=== PATIENT | male | born 1980 | race Caucasian/White ===

== ENCOUNTER 2025-10-13 13:01 | Outpatient (AMB) | payer BC, SELFPAY ==
--- NOTE | 2025-10-13 13:23 | A.OFFVIS_ITS ---
Vital Signs 10/13/25 13:25 Height 6 ft Weight 170 lb BMI 23.1 Intake Visit Reasons: rt foot injury x5 yrs ago in pain Intake Note: Lucas is a 44 year old male who presents today as a new patient for an evaluation of his right foot injury over 5 years ago. he had a compound fracture on both sides of his ankle and he notices discomfort and pain regularly. no recent imaging has been done. patient reports pain located on the plantar aspect of the ball of his foot where a possible callous has formed. He believes there might be a glass shard left in his foot. Allergies No Known Allergies Allergy (Verified 10/13/25 13:24) HPI HPI rt foot injury x5 yrs ago in pain: Details: 44 y/o male seen today for initial evaluation of lesion to his right foot. He has had the lesion for over 2 months. He thinks he may have stepped on glass although he is unsure. He went to see a deck cadet who shaved the lesion and did not find a foreign body at the time. He also notes a history of right ankle fracture that underwent multiple surgeries including a wound dehiscence. He does note limited mobility to the ankle and was recommended an ankle fusion by another provider however he is not interested in any treatment at this time. Review of Systems Const All systems reviewed & are unremarkable except as noted in HPI and below Physical Exam Vital Signs: BMI result Body Mass Index 23.1 Extrem Other: *Bilateral Lower Extremity Focused Foot Exam Vascular: DP/PT 2/4, CFT<3s to digits, TG warm to cool, no pedal edema, pedal hair present Derm: hyperkeratotic lesion with pinpoint central scar/opening to the plantar aspect of the 3rd/4th metatarsal region. no obvious foreign body visualized. no erythema or drainage or signs of infection. healed incisions to lateral and medial right ankle Neuro: Protective sensation grossly intact to bilateral lower extremities. Msk: moderate pain on palpation to right plantar lesion right ankle range of motion 20 degrees, dorsiflexion to 0 degrees with osseous block. Footwear Assessment: Shoes inspected; appropriate fit, no excessive wear, or foreign objects noted. Office Procedures AMB Debridement/Avulsion Podia Details: Procedure: Callus debridement Location: right plantar foot lesion Anesthesia: N/A Description: The affected area was cleansed with an antiseptic solution. Using a sterile #15 blade, the hyperkeratotic tissue was radially debrided from the foot. All callused tissue was removed down to normal skin without causing bleeding or discomfort. The area was inspected for underlying ulceration or infection. Patient tolerated the procedure well. No complications noted. Tolerance: Patient tolerated procedure well, no immediate complications. 19487-Qasehhymtsc of Callus (1) Procedure code (CPT) selection complete Assessment & Plan Assessment & Plan (1) Foreign body in right foot: Code(s): S90.851A - Superficial foreign body, right foot, initial encounter Category: Medical Qualifiers: Encounter type: initial encounter Qualified Code(s): S90.851A - Superficial foreign body, right foot, initial encounter Plan: * Differential diagnosis includes retained foreign body versus plantar lesion 2/2 elongated metatarsal in the setting of rigid ankle rocker. * Referred for right foot x-ray * Rx Right Foot MRI with and without contrast to evaluate for foreign body and plan for possible surgical excision. (2) Ankle arthritis: Code(s): M19.079 - Primary osteoarthritis, unspecified ankle and foot Category: Medical Qualifiers: Laterality: right Qualified Code(s): M19.071 - Primary osteoarthritis, right ankle and foot Plan: * Discussed possible custom AFO in the future if he requires it * No surgical plan/TTC at this time due to fair ankle range of motion. (3) Callus of foot: Code(s): L84 - Corns and callosities Category: Medical Plan: * Debrided right foot lesion using a #15 blade. Applied off-loading U-pad. * Rx Urea cream Orders: Orders XR foot RT min 3V Today S90.851A - Superficial foreign body, right foot, initial encounter MR ankle RT wo/w con Today S90.851A - Superficial foreign body, right foot, initial encounter Medications: New urea 40% Apply to right foot callus 1 appl topical BID 28 grams 3RF Right foot callus Coding Level of Care Code New Pt Level 4 (24801) Diagnoses Foreign body in right foot, initial encounter S90.851A Encounter type: initial encounter Arthritis of right ankle M19.071 Laterality: right Callus of foot L84 CPT Codes Skin Debridement - CPT: 70914-Ehexqitoijx of Callus (1) ([id number]) Time Spent (min) 40
[2025-10-13 13:25] VITALS: BMI 23.1
== END 2025-10-13 13:48 | disposition home or self-care (01) ==
PROVIDERS: PCP Internal Medicine Sports Medicine; Visit Provider Student in an Organized Health Care Education/Training Program
DX: S90.851A Superficial foreign body, right foot, initial encounter (principal); M19.071 Primary osteoarthritis, right ankle and foot; L84 Corns and callosities
CPT/HCPCS: 11055; 99204

== ENCOUNTER → 2025-10-13 13:01 | Outpatient (BNVA) | payer BC, SELFPAY | PROVIDERS: PCP Internal Medicine Sports Medicine; Visit Provider Student in an Organized Health Care Education/Training Program | DX: S90.851A Superficial foreign body, right foot, initial encounter (principal); M19.071 Primary osteoarthritis, right ankle and foot; L84 Corns and callosities | CPT/HCPCS: 11055 ==

== ENCOUNTER 2025-11-09 14:36 | Outpatient (REF) | payer BC, SELFPAY ==
--- NOTE | ~2025-11-09 | XR_ITS ---
EXAMINATION: XR FOOT, RIGHT CLINICAL INFORMATION: S90.851A - Superficial foreign body, right foot, initial encounter COMPARISON: None available. TECHNIQUE: AP, lateral, and oblique views of the right foot. FINDINGS: There is osteopenia. No fractures are identified. There is no joint diastases or malalignment. There is hardware related to ORIF of a distal tibial fracture There is severe narrowing, marginal osteophytes, and sclerosis of the talotibial and talofibular joints. 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 Osteopenia. No superficial radiopaque foreign is identified. Electronically signed by: Allan Johnston MD 11/09/2025 04:05 PM JOSE ANTONIO ACOSTA
--- OUTSIDE RECORDS SUMMARY | 2025-11-09 21:08 | XMS_ITS | Encounter Summary ---
Author Organization [facility] Address [facility] [address] [place] [address] Phone Care Team Providers Care Practice Coordinator Name Role Phone Reji Ying DO Primary Care Provider [phone] Fadi Metzger MD Primary Care Provider Gale Grace MD Unavailable Encounter Details Date Type Department Care Team (Late st Contact Info) Description 02/04/2019 Ancillary Orders Virtual Department [address] [place] [address] Reji Ying DO [address] [address] SOB (shortness of breath) Social History Tobacco Use Types Packs/Day Years Used Date Smoking Tobacco: Never Smokeless Tobacco: Never Alcohol Use Standard Drinks/Week Comments Yes 0 (1 standard drink = 0.6 oz pur e alcohol) Sex and Gender Information Value Date Recorded Sex Assigned at Male 12/23/2018 2:28 PM EST Legal Sex Male 9:23 PM EDT Gender Identity Male 12/23/2018 2:28 PM EST Sexual Orientation Straight 12/23/2018 2: 28 PM EST documented as of this encounter Plan of Treatment Not on file documented as of this encounter Results * XR CHEST PA AND LATERAL 2 VIEWS (02/04/2019 11:28 AM EDT) Anatomical Region Laterality Modality Chest Radiographic Stephanie ging 02/04/2019 12:5 6 PM EDT Impressions 02/04/2019 12:57 PM EDT No acute cardiopulmonary process. POS - [id number] Narrative 02/04/2019 12:57 PM EDT EXAM: XR CHEST PA AND LATERAL 2 VIEWS COMPARISON: July 31, 2007 FINDINGS: No confluent lung consolidations or lung masses. No pneumothorax or pleural effusion. No pulmonary vascular congestion. Cardiomediastinal silhouette is within normal limits. Osseous structures are grossly intact. Procedure Note Obed Guzmán MD - 02/04/2019 EXAM: XR CHEST PA AND LATERAL 2 VIEWS COMPARISON: July 31, 2007 FINDINGS: No confluent lung consolidations or lung masses. No pneumothorax orpleural effusion. No pulmonary vascular congestion. Cardiomediastinalsilhouette is within normal limits. Osseous structures are grosslyintact. IMPRESSION: No acute cardiopulmonary process. POS - [id number] Reji Ying DO IMViet XR CHEST Final Result documented in this encounter Visit Diagnoses Diagnosis SOB (shortness of breath) Shortness of breath SOB (shortness of breath) Shortness of breath documented in this encounter Additional Health Concerns Infection Onset Date Last Indicated Resolved Time CoV-Risk 07/21/2020 07/21/2020 08/04/2020 1:23 AM EDT documented as of this encounter Care Teams Practice Coordinator Relationship Specialty Start Date End Date Reji Ying DO PCP - General 09/10/17 04/06/19 Fadi Metzger MD PCP - General Internal Medicine 04/07/19 Gale Grace MD [address] [place] [address] [address] [place] [address] [email or web address] Orthopedic Surgeon Orthopedic Surgery 09/11/19 documented as of this encounter Additional Source Comments The information contained in this document represents components of the legal health record. It is not the complete legal health record.[facility]
--- OUTSIDE RECORDS SUMMARY | 2025-11-09 21:08 | XMS_ITS | Clinical Summary ---
Author Organization [facility] Prior to 04/25/[address] [place] [address] Care Team Providers Care Construction Equipment Overhauler Name Role Phone Fadi Metzger MD Primary Care Provider [phone] Medications Medication Sig Dispensed Refills Start Date End Date Status cholecalciferol (VITAMIN D3) 200 UNITS split tablet Take by mouth. 0 Ac tive SENNA PO TK 1 T PO D 0 06/18/2020 Active albuterol (PROVENTIL HFA;VENTOLIN HFA) 108 (90 Base) MCG/ACT inhaler Inhale 2 puffs into the lungs every 4 (four) hours. 0 02/06/2019 Active ALPRAZolam (XANAX) 0.5 MG tablet Take 0.5 mg by mouth. 0 06/30/2020 Active amphetamine-dextroamp hetamine (ADDERALL) 20 MG tablet Take 20 mg by mouth. 0 07/22/2020 Active fluticasone-salmetero l (ADVAIR DISKUS) 250-50 MCG/DOSE DISKUS Inhale 1 puff into the lungs. 0 07/13/2020 Active WIXELA INHUB 250-50 MCG/DOSE DISKUS INHALE 1 PUFF INTO THE LUNGS Q 12 HOURS 0 07/13/2020 Active ibuprofen (ADVIL,MOTRIN) 200 MG tablet Take 200 mg by mouth every 6 (six) hours as needed. 0 Active montelukast (SINGULAIR) 10 MG tablet Take 10 mg by mouth. 0 07/09/2020 Active oxyCODONE (ROXICODONE) 5 MG immediate release tablet Take 5 mg by mouth. 0 06/30/2020 Activ e predniSONE (DELTASONE) tablet 20 mg TK 3 TS PO WITH FOOD D X5 DAYS 0 07/12/2020 Active senna-docusate (DOK PLUS) 8.6-50 MG TAKE 1 TABLET BY MOUTH EVERY DAY 0 02/01/2020 Active SODIUM CHLORIDE, EXTERNAL, (GNP SALINE WOUND WASH) 0.9 % SOLN Use as directed 0 04/25/2019 Active zolpidem (AMBIEN) 10 MG tablet Take 10 mg by mouth. 0 05/07/2020 Active Social History Tobacco Use Types Packs/Day Years Used Date Smoking Tobacco: Never Smokeless Tobacco: Never Alcohol Use Standard Drinks/Week Comments Yes 5 (1 standard drink = 0.6 oz pur e alcohol) Sex and Gender Information Value Date Recorded Sex Assigned at Not on file Gender Identity Not on file Sexual Orientation Not on file Last Filed Vital Signs Vital Sign Reading Time Taken Comments Blood Pressure - - Pulse - - Temperature 36.7 C (98.1 F) 07/22/2020 2:54 PM EDT Respiratory Rate - - Oxygen Saturation - - Inhaled Oxygen Concentration - - Weight 77.1 kg (170 lb) 07/22/2020 2:54 PM EDT Height 182.9 cm (6') 07/22/2020 2:54 PM EDT Body Mass Index 23.06 07/22/2020 2:54 PM EDT Plan of Treatment Health Maintenance Due Date Last Done Comments Hepatitis B Vaccines (1 of 3 - 3-dose series) 1979 Hepatitis C Screening 1979 COVID-19 Vaccine (#1) 06/02/1980 Depression Screening 1991 Preventative Health Evaluation 1997 Colon Cancer Screening (Colonoscopy) 2024 Influenza Vaccine (#1) 2025 08/19/2018 DTap / Tdap / Td (3 - Td or Tdap) 12/23/2028 12/23/2018, 09/11/2016 Pneumococcal Vaccine Aged Out No long er eligible based on patient's age to complete this topic RSV Ped < 20 months Aged Out No longe r eligible based on patient's age to complete this topic Care Teams Construction Equipment Overhauler Relationship Specialty Start Date End Date Fadi Metzger MD [address] [place] [address] PCP - General Internal Medicine 07/22/20
--- OUTSIDE RECORDS SUMMARY | 2025-11-09 21:08 | XMS_ITS | Patient Health Record ---
Author Organization [facility] Address [address] [place] [id number] Care Team Providers Care Wire Technician Name Role Phone PURNIMA SRIVASTAVA MD Primary Care Provider Unava ilable Reason For Referral No Information Medications Medication SIG (Take, Route, Frequency, Duration) Notes Start Date End Date Status Adderall 50mg tablet 1 tablet Orally Twice a day Active Albuterol Sulfate 108 (90 Base) MCG/ACT Aerosol Powder Breath Activated 2 puffs Inhalation every 6 hrs Active Propranolol HCl 80 MG Tablet 1 capsule Orally Once a day Not-Taking/PRN Multiple Vitamin - Tablet 1 tablet Orally Once a day Active Cialis 5 MG Tablet 1 tablet Orally Once a day Not-Taking/PRN Methocarbamol 500 MG Tablet 1 tablet Orally TID; Duration: 30 day(s) 08/23/2020 Active Meloxicam 7.5 MG Tablet 1 tablet Orally Once a day; Duration: 30 day(s) 08/23/2020 Active oxyCODONE HCl 5 MG Tablet 1 tablet Orally every 8 hours as needed Active Gabapentin 300 MG Capsule 1 capsule Orally Once a day Active Zolpidem Tartrate 10 MG Tablet 1 tablet at bedtime as needed Orally Once a day Active Cholecalciferol 1 tablet Orally Once a day Not-Taking/PRN Amphetamine-Dextroamphe tamine Active Fluticasone-Salmeterol 250-50 MCG/DOSE Aerosol Powder Breath Activated 1 puff Inhalation every 12 hours Not-Taking/PRN Montelukast Sodium 10 MG Tablet 1 tablet Orally bedtime Not-Taking/PRN ALPRAZolam 0.5 MG Tablet 1 tablet Orally one a day Active Lidocaine 5 % Patch 1 patch remove after 12 hours Externally Once a day; Duration: 30 days 08/23/2020 Active Social History Tobacco Use: Social History Observation Description Date Details (start date - stop date) Never Smoker NA - NA Social History Tobacco Use: Social Info Question Answer Notes Tobacco Use/Smoking Are you a nonsmoker Additional Findings: Tobacco Non-User Current no n-smoker Additional Details Category Social Info Options Details Tobacco Use: Medical Marijuana medical Problems Problem Type SNOMED Code ICD Code Onset Dates Problem Status W/U Status Risk Notes Problem Complex regional pain syndrome type I of right lower limb (disorder) ([id number]) Complex regional pain syndrome I of right lower limb (G90.521) Active confirmed Plan Of Treatment No Information Insurance Providers Payer Name Payer Address Payer Phone Subscriber Number Group Number Insured Name Patient Relationship to Insured Coverage Start Date Coverage End Date [employer] [address] [place], [place] [id number] WILLIAM CHAVEZ Self - patient is the insured Medical (General) History Medical History History ICD Code moderate persistent asthma without compl ication anxiety chronic pain of right ankle insomnia, unspecified type low back pain siluntion deficit disorder-franklin antunez elevated BP 03/2013 FBS-107 borderline lipids medical marijuana car from chad Pacheco MD March2013 Allay marjuana infused lotion of pain add letter from Tamir Hazel at [facility] - ADD diagnosis right ankle injury-[facility] orth 2012-insists he needs percocet on occassions and has been counseled extensively conncerning therisk. signed nercotie contract 04/13/2015 signed narcotric contract 12/23/2015 Surgical History Surgery Date(Month/Year) ankle surgery leg surgery Hospitalization History Reason Date(Month/Year) skiing accident, broken tibi a and fibula, broke ankle into 50 pieces, damage to pcl 2017
--- OUTSIDE RECORDS SUMMARY | 2025-11-09 21:08 | XMS_ITS | Encounter Summary ---
Author Organization [facility] Address [address] [place] [address] [place] [id number] Phone Care Team Providers Care Manager Property Name Role Phone Fadi Metzger MD Primary Care Provider Gale Grace MD Unavailable [phone] Encounter Details Date Type Department Care Team (Late st Contact Info) Description 04/28/2020 Procedure Pass [facility] [address] [place] [address] Social History Tobacco Use Types Packs/Day Years Used Date Smoking Tobacco: Never Smokeless Tobacco: Never Alcohol Use Standard Drinks/Week Comments Yes 6 (1 standard drink = 0.6 oz pur e alcohol) Sex and Gender Information Value Date Recorded Sex Assigned at Male 12/23/2018 2:28 PM EST Legal Sex Male 9:23 PM EDT Gender Identity Male 12/23/2018 2:28 PM EST Sexual Orientation Straight 12/23/2018 2: 28 PM EST documented as of this encounter Plan of Treatment Not on file documented as of this encounter Visit Diagnoses Not on filedocumented in this encounter Additional Health Concerns Infection Onset Date Last Indicated Resolved Time CoV-Risk 07/21/2020 07/21/2020 08/04/2020 1:23 AM EDT documented as of this encounter Care Teams Manager Property Relationship Specialty Start Date End Date Fadi Metzger MD PCP - General Internal Medicine 04/07/19 Gale Grace MD [address] [place] [address] [address] [place] [address] [email or web address] Orthopedic Surgeon Orthopedic Surgery 09/11/19 documented as of this encounter Additional Source Comments The information contained in this document represents components of the legal health record. It is not the complete legal health record.[facility]
--- OUTSIDE RECORDS SUMMARY | 2025-11-09 21:08 | XMS_ITS | Encounter Summary ---
Author Organization [facility] Address [address] [place] [address] Phone Care Team Providers Care Developmental Specialist Name Role Phone Fadi Metzger MD Primary Care Provider Gale Grace MD Unavailable [phone] Encounter Details Date Type Department Care Team (Late st Contact Info) Description 08/13/2020 Transcribe Orders Virtual Department [address] [place] [address] Caryl Trujillo MD [address] [place] [address] Encounter for laboratory testing for COVID-19 virus (Primary Dx) Social History Tobacco Use Types Packs/Day Years [...] documented as of this encounter Visit Diagnoses Diagnosis Encounter for laboratory testing for COVID-19 virus- Primary documented in this encounter Care Teams Developmental Specialist Relationship Specialty Start Date End Date Fadi Metzger MD PCP - General Internal Medicine 04/07/19 Gale Grace MD [address] [place] [address] [address] [place] [id number] [email or web address] Orthopedic Surgeon Orthopedic Surgery 09/11/19 documented as of this encounter Additional Source Comments The information contained in this document represents components of the legal health record. It is not the complete legal health record.[facility]
--- OUTSIDE RECORDS SUMMARY | 2025-11-09 21:08 | XMS_ITS | Encounter Summary ---
Author Organization [facility] Address [address] [place] [address] Phone Care Team Providers Care Contact Lens Curve Grinder Name Role Phone Reji Ying DO Primary Care Provider [phone] Fadi Metzger MD Primary Care Provider Gale Grace MD Unavailable [phone] Encounter Details Date Type Department Care Team (Late st Contact Info) Description 12/24/2018 Procedure Pass [facility] [address] [place] [phone] Social History Tobacco Use Types Packs/Day Years [...] documented as of this encounter Care Teams Contact Lens Curve Grinder Relationship Specialty Start Date End Date Reji Ying DO PCP - General 09/10/17 04/06/19 Fadi Metzger MD PCP - General Internal Medicine 04/07/19 Gale Grace MD [address] [place] [address] [address] [place] [address] [email or web address] Orthopedic Surgeon Orthopedic Surgery 09/11/19 documented as of this encounter Additional Source Comments The information contained in this document represents components of the legal health record. It is not the complete legal health record.[facility]
--- OUTSIDE RECORDS SUMMARY | 2025-11-09 21:08 | XMS_ITS | Encounter Summary ---
Author Organization [facility] Address [address] [place] [address] Phone Care Team Providers Care Whale Trainer Name Role Phone Reji Ying DO Primary Care Provider [phone] Fadi Metzger MD Primary Care Provider Gale Grace MD Unavailable [phone] Encounter Details Date Type Department Care Team (Late st Contact Info) Description 01/07/2019 Procedure Pass [facility] [address] [place] [phone] Social History Tobacco Use Types Packs/Day Years [...] documented as of this encounter Care Teams Whale Trainer Relationship Specialty Start Date End Date Reji Ying DO PCP - General 09/10/17 04/06/19 Fadi Metzger MD PCP - General Internal Medicine 04/07/19 Gale Grace MD [address] [place] [address] [address] [place] [address] [email or web address] Orthopedic Surgeon Orthopedic Surgery 09/11/19 documented as of this encounter Additional Source Comments The information contained in this document represents components of the legal health record. It is not the complete legal health record.[facility]
--- OUTSIDE RECORDS SUMMARY | 2025-11-09 21:08 | XMS_ITS | Clinical Summary ---
Author Organization [facility] Address [facility] [employer] [address] [address] Phone Care Team Providers Care Claims Administrator Name Role Phone Fadi Metzger MD Primary Care Provider Gale Grace MD Unavailable [phone] Allergies No known active allergies Medications ALPRAZolam (XANAX) 0.5 MG tablet Take 0.5 mg by mouth nightly as needed for sleep. Per [employer] 30 tabs = 30 day supply; last filled on 12/17/18 Active dextroamphetami ne-amphetamine (ADDERALL) 20 mg Tab tablet Take 20 mg by mouth 2 (two) times a day. Second dose before 5 pm to prevent insomnia; per [employer] 60 tabs = 30 day supply, last filled on 12/22/18 Active zolpidem (AMBIEN) 10 mg tablet Take 5-10 mg by mouth nightly as needed (Verified with pt Pharmacy - [facility]). Active albuterol 90 mcg/actuation inhaler Inhale 2 puffs into the lungs every 4 (four) hours. 1 Inhaler 9 Active sodium chloride (SALINE WOUND WASH) 0.9 % SprA Use as directed 210 mL 9 Active Additional Information Patient not taking.Reported on 10/29/2019 ibuprofen (ADVIL,MOTRIN) 200 MG tablet Take 200 mg by mouth every 6 (six) hours as needed for pain (specific location in comments). Active DOK PLUS 8.6-50 mg TAKE 1 TABLET BY MOUTH EVERY DAY 60 tablet 0 Active Additional Information Patient not taking.Reported on 04/28/2020 SENNA 8.6 mg tablet TAKE 1 TABLET BY MOUTH DAILY 30 tablet 3 0 Active Active Problems Problem Noted Date Diagnosed Date Surgical site infection 05/05/2019 Closed displaced pilon fract ure of right tibia with routine healing 01/08/2019 Rupture of tibialis posterio r tendon, right, initial encounter 01/07/2019 Ankle fracture, bimalleolar, closed, left, seque la 01/06/2019 Closed displaced pilon fract ure of tibia with routine healing 12/30/2018 Assessment & Plan (10/30/2019 5:23 AM EST): Reports stiffness and pain of joints in the morning after waking up which resolves as the day progresses which is currently better than it was earlier. Inquires if his stiffness and pain does not resolve, then it would be a sign of arthritis or healing. Inquires if he can ski and continue PT. He is not on antibiotics for two months. X-rays and CT scan of right ankle obtained today. Reviewed and discussed. Continue WBAT and AAT. Can take Advil or Aleve as needed. He may resume skiing if he is comfortable and uses rocker bottom shoes, as it will reduce strain on ankle joint. Suggested elliptical, bicycle and swimming and avoid running. Explained that if his pain and stiffness do not resolve it would be more likely a sign of arthritis. Discussed treatment with cortisone injection and bracing for arthritis. Continue PT as long as he is benefited from it, or he can continue with normal exercises. Follow up in March 15, 2020, with repeat right ankle x-ray. Assessment & Plan (01/23/2019 5:40 AM EST): He is two weeks s/p ORIF right pilon, removal external fixator performed on January 07, 2019. H/o Ex-fix right ankle and limited articular ORIF right tibial plafond performed on December 24, 2018. Reports severe right foot pain at some point of the day. He is taking pain medications, trying to wean it. He has few blisters over the right leg. Feels his right knee and foot are quite aligned. Informs he has rescheduled the MRI right knee. His mother is performing his nursing care. 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 He is out of work currently. Blisters, swelling are common with these type of fractures. It is called as fracture blisters. X-rays of the right ankle and tibia fibula obtained today. Reviewed and visualized. Reviewed CT right ankle performed on December 24, 2018. Removed the sutures today. Will let the middle sutures stay on. Send me a picture and I will instruct when to remove those sutures. Provided brace for the right foot today. Advised to perform the MRI right knee scheduled, to rule out extent of degrees of external rotation of the right foot. The degrees of external rotation maybe asymmetric slightly, however, not necessary. Function davidson he will be fine. I would think some bracing to keep the right foot aligned would be beneficial. We do not want him to develop stiffness. Prescribed gabapentin (NEURONTIN) 100 MG capsule. Take 1 capsule (100 mg total) by mouth every 8 (eight) hours Advised to remain out of work currently, as he will not be able to drive for a certain period. Try to relax the right leg as much as possible. I may manually be able to straighten the foot; however, I would not opt that. Allowed showering with soap and water. Dry meticulously. The knee ligaments are affected leading to deformity, we may consider referral to a sports surgeon. If not, I will allow it to heal, and observe if he has any functional problems and accept a slightly outwardly rotated knee. The only way to rotate the knee back is by surgery. Discussed bone healing post fractures. Discussed need for revision surgeries. Discussed Dial test for knee. Ambulatory referral to [facility] [place] [place] Venereal Disease Investigator Casting and Splinting provided. Follow up in four weeks with repeat x-rays of the right tibia fibula and ankle. Pilon fracture of right tibi a, open type I or II, initial encounter 12/23/2018 Immunizations Immunization Administration Dates Next Due Influenza Quadrivalent Prese rvative Free IM 01/08/2019(Deferred: Contraindication) Tdap 12/23/2018 Social History Tobacco Use Types Packs/Day Years Used Date Smoking Tobacco: Never Smokeless Tobacco: Never Tobacco Cessation:Counseling Given: No Alcohol Use Standard Drinks/Week Comments Yes 6 (1 standard drink = 0.6 oz pur e alcohol) Education Answer Date Recorded Are you interested in more education? Not on rolando e 03/23/2023 Are you concerned about learning? Not on file 03/23/2023 No 03/23/2023 No 03/23/2023 Digital Access Answer Date Recorded No 04/20/2023 No 04/20/2023 No 04/20/2023 Reliable internet access at home? Not on file 04/20/2023 Device with a working camera? Not on file Sex and Gender Information Value Date Recorded Sex Assigned at Male 12/23/2018 2:28 PM EST Legal Sex Male 9:23 PM EDT Gender Identity Male 12/23/2018 2:28 PM EST Sexual Orientation Straight 12/23/2018 2: 28 PM EST Last Filed Vital Signs Vital Sign Reading Time Taken Comments Blood Pressure 134/94 04/28/2020 11:00 AM EDT Pulse 74 04/28/2020 11:00 AM EDT Temperature 36.5 C (97.7 F) 04/28/2020 11:00 AM EDT Respiratory Rate 16 04/28/2020 11:00 AM EDT Oxygen Saturation 100% 04/28/2020 11:00 AM EDT Inhaled Oxygen Concentration - - Weight 77.1 kg (170 lb) 04/22/2020 1:59 PM EDT Height 182.9 cm (6') 04/22/2020 1:59 PM EDT Body Mass Index 23.06 04/22/2020 1:59 PM EDT Plan of Treatment Health Maintenance Due Date Last Done Comments LIPID PANEL 1979 DEPRESSION SCREENING 1991 HEPATITIS C SCREENING 1997 HIV ONE-TIME SCREENING (18-65 YEARS) 1997 COLOGUARD 2024 COLONOSCOPY 2024 COLORECTAL CANCER SCREENING 2024 FIT TEST 2024 FOBT 2024 SIGMOIDOSCOPY 2024 VIRTUAL COLONOSCOPY 2024 INFLUENZA VACCINE (#1) 2025 , 08/12/2019, 09/02/2018, Additional history exists COVID-19 VACCINE ( season) 2025 03/08/2021 Adult Td,Tdap Booster 07/28/2030 07/28/2020 , 12/23/2018, 07/05/2018, Additional history exists SMOKING STATUS SCREENING (Once After 26 Yrs) Completed 04/22/2020 HEPATITIS A VACCINES Aged Out No long er eligible based on patient's age to complete this topic HIB VACCINES Aged Out No longer eligi ble based on patient's age to complete this topic MENINGOCOCCAL VACCINES (ACWY) Aged Out No longer eligible based on patient's age to complete this topic MENINGOCOCCAL VACCINES (B) Aged Out N o longer eligible based on patient's age to complete this topic PNEUMOCOCCAL VACCINES (0-49 years) Aged Out No longer eligible based on patient's age to complete this topic Medical Devices Implanted Type Area Client Service Supervisor Device Identifier Shelf Expiration Date Model / Serial / Lot Screw Bone 48x3.5mm Cortex Ss Cannulated Partial Thread Hexagonal Socket Flat Head - [id number] Implanted:Qty: 2 on 12/24/2018 by Gale Grace MD at [facility] Right: Ankle SYNTHES [id number] / / Screw Bone 40x3.0mm Cannulated Ss Compression Short Thread Headless T8 [employer] Recess - [id number] Implanted:Qty: 2 on 12/24/2018 by Gale Grace MD at [facility] Explanted:Qty: 1 on 01/07/2019 at [facility] Right: Ankle SYNTHES [id number] / / Screw Bone 3.5x30mm Cortex Self Tapping Fully Threaded Hex Head Ss - [id number] Implanted:Qty: 2 on 01/07/2019 by Gale Grace MD at [facility] Right: Ankle SYNTHES 204.830 / / Screw Bone 56x3.5mm Lcp Ss Locking Self Tapping Full Thread [employer] Recess - [id number] Implanted:Qty: 1 on 01/07/2019 by Gale Grace MD at [facility] Right: Ankle SYNTHES [id number] / / Screw Bone 60x3.5mm Compression Ss Locking Self Tapping Full Thread T15 [employer] Recess - [id number] Implanted:Qty: 2 on 01/07/2019 by Gale Grace MD at [facility] Right: Ankle SYNTHES 212.124 / / Screw Bone 3.5x26mm Cortex Self Tapping Fully Threaded Hex Head Ss - [id number] Implanted:Qty: 1 on 01/07/2019 by Gale Grace MD at [facility] Right: Ankle SYNTHES 204.826 / / Screw Bone 3.5x28mm Cortex Self Tapping Fully Threaded Hex Head Ss - [id number] Implanted:Qty: 2 on 01/07/2019 by Gale Grace MD at [facility] Right: Ankle SYNTHES 204.828 / / Right Wrist Tibia Plate [id number] 8 Hole Bone Lcp Ss [place] Medial Distal Right - [id number] Implanted:Qty: 1 on 01/07/2019 by Gale Grace MD at [facility] Right: Ankle SYNTHES [id number] / / Insurance T PPO T PPO AETNA PPO AETNA PPO AETNA PPO AETNA PPO AETNA PPO AETNA PPO AETNA PPO Advance Directives For more information, please contact: [phone] (9AM - 5PM [facility], Sunday-Sunday) Documents on File Type Date Recorded Patient Porter Bag[employer] Expl anation Healthcare Proxy 12/27/2018 3:40 PM * Full Code (Presumed) (Latest Code Status on File) Date Activated Date Inactivated Comments 01/07/2019 7:29 AM 01/08/2019 4:49 PM * Full Code (Presumed) Date Activated Date Inactivated Comments 01/06/2019 4:09 PM 01/07/2019 7:29 AM * Full Code (Presumed) Date Activated Date Inactivated Comments 12/24/2018 11:46 AM 12/26/2018 5:13 PM * Full Code (Presumed) Date Activated Date Inactivated Comments 12/23/2018 9:46 PM 12/24/2018 11:46 AM Care Teams Claims Administrator Relationship Specialty Start Date End Date Fadi Metzger MD PCP - General Internal Medicine 04/07/19 Gale Grace MD [address] [place] [address] [address] [place] [address] [email or web address] Orthopedic Surgeon Orthopedic Surgery 09/11/19 Additional Source Comments The information contained in this document represents components of the legal health record. It is not the complete legal health record.[facility]
--- OUTSIDE RECORDS SUMMARY | 2025-11-09 21:08 | XMS_ITS | Encounter Summary ---
Author Organization [facility] Address [facility] [address] [address] Phone Care Team Providers Care Multicultural Manager Name Role Phone StepanReji Primary Care Provider [phone] Fadi Metzger MD Primary Care Provider Gale Grace MD Unavailable [phone] Encounter Details Date Type Department Care Team (Late st Contact Info) Description 01/17/2019 Procedure Pass [facility], [address] [address] Social History Tobacco Use Types Packs/Day Years [...] PM EST documented as of this encounter Last Filed Vital Signs Vital Sign Reading Time Taken Comments Blood Pressure - - Pulse - - Temperature - - Respiratory Rate - - Oxygen Saturation - - Inhaled Oxygen Concentration - - Weight 88.5 kg (195 lb) 01/20/2019 1:47 PM EST Height 182.9 cm (6') 01/20/2019 1:47 PM EST Body Mass Index 26.45 01/20/2019 1:47 PM EST documented in this encounter Plan of Treatment Not on file documented as of this encounter Visit Diagnoses Not on filedocumented in this encounter Additional Health Concerns Infection Onset Date Last Indicated Resolved Time CoV-Risk 07/21/2020 07/21/2020 08/04/2020 1:23 AM EDT documented as of this encounter Care Teams Multicultural Manager Relationship Specialty Start Date End Date StepanRejiDO PCP - General 09/10/17 04/06/19 Fadi Metzger MD PCP - General Internal Medicine 04/07/19 Gale Grace MD [address] [place] [address] [address] [place] [address] [email or web address] Orthopedic Surgeon Orthopedic Surgery 09/11/19 documented as of this encounter Additional Source Comments The information contained in this document represents components of the legal health record. It is not the complete legal health record.[facility]
== END 2025-11-09 14:37 | disposition home or self-care (01) ==
LOC: HO.XRAY 14:36
PROVIDERS: Visit Provider Student in an Organized Health Care Education/Training Program
DX: S90.851A Superficial foreign body, right foot, initial encounter (principal)
CPT/HCPCS: 73630

== ENCOUNTER → 2025-11-09 14:44 | Outpatient (BNV) | payer BC, SELFPAY | PROVIDERS: Visit Provider Radiology Diagnostic Radiology | DX: S90.851A Superficial foreign body, right foot, initial encounter (principal); M19.171 Post-traumatic osteoarthritis, right ankle and foot; M85.871 Other specified disorders of bone density and structure, right ankle and foot | CPT/HCPCS: 73630 ==

== ENCOUNTER 2025-11-10 12:36 | Outpatient (AMB) | payer BC, SELFPAY ==
--- NOTE | 2025-11-10 13:08 | A.OFFVIS_ITS ---
Vital Signs 11/10/25 13:09 Height 6 ft Weight 170 lb BMI 23.1 Intake Visit Reasons: rt foot injury x5 yrs ago in pain Intake Note: Lucas is a 44 year old male who presents today for a follow up on his ankle arthiritis. At his last visit X-ray and MRI where ordered. Patient reports everything is going well however he is still experiencing a discomfort on the plantar aspect of his right foot. Allergies No Known Allergies Allergy (Verified 11/10/25 13:10) HPI HPI rt foot injury x5 yrs ago in pain: Details: 44 y/o male seen today for follow up evaluation of lesion of his right foot. He notes the pain has improved his right foot, although he still experiences some sharp pain. He has not been unable to receive his MRI. He has not started his urea cream. History: He has had the lesion for over 2 months. He thinks he may have stepped on glass although he is unsure. He went to see a javascript web developer who shaved the lesion and did not find a foreign body at the time. He also notes a history of right ankle fracture that underwent multiple surgeries including a wound dehiscence. He does note limited mobility to the ankle and was recommended an ankle fusion by another provider however he is not interested in any treatment at this time. Review of Systems Const All systems reviewed & are unremarkable except as noted in HPI and below Physical Exam Vital Signs: BMI result Body Mass Index 23.1 Extrem Other: *Bilateral Lower Extremity Focused Foot Exam Vascular: DP/PT 2/4, CFT<3s to digits, TG warm to cool, no pedal edema, pedal hair present Derm: Mild hyperkeratotic lesion with pinpoint central scar/opening to the plantar aspect of the 3rd/4th metatarsal region. no obvious foreign body visualized. no erythema or drainage or signs of infection. healed incisions to lateral and medial right ankle Neuro: Protective sensation grossly intact to bilateral lower extremities. Msk: no pain on palpation to right plantar lesion right ankle range of motion 20 degrees, dorsiflexion to 0 degrees with osseous block. Footwear Assessment: Shoes inspected; appropriate fit, no excessive wear, or foreign objects noted. Office Procedures AMB Debridement /Avulsion Details: Procedure: Callus debridement Location: right plantar foot lesion Anesthesia: N/A Description: The affected area was cleansed with an antiseptic solution. Using a sterile #15 blade, the hyperkeratotic tissue was radially debrided from the foot. All callused tissue was removed down to normal skin without causing bleeding or discomfort. The area was inspected for underlying ulceration or infection. Patient tolerated the procedure well. No complications noted. Tolerance: Patient tolerated procedure well, no immediate complications. [id number] of Callus (1) Procedure code (CPT) selection complete Results Reviewed Results Reviewed: X-ray Read: 11/09/2025 X-ray right foot 3 views (AP, MO, Lateral) reviewed which shows mildly elongated 2nd/3rd metatarsals, shorter 4th metatarsal and 5th metatarsal. No fractures, dislocations, or gross abnormalities. Bone density is within normal limits. Normal anatomy. No evidence of swelling, foreign body, or calcifications. I personally reviewed the imaging and my findings are listed above. Assessment & Plan Assessment & Plan (1) Foreign body in right foot: Code(s): S90.851A - Superficial foreign body, right foot, initial encounter Category: Medical Qualifiers: Encounter type: initial encounter Qualified Code(s): S90.851A - Superficial foreign body, right foot, initial encounter Plan: * Differential diagnosis includes retained foreign body versus plantar lesion 2/2 elongated metatarsal in the setting of rigid ankle rocker. * Evaluated right foot x-ray which was negative for foreign bodies, no fractures. Mild abnormal metatarsal parabola. * Instructed the patient to receive his right foot MRI to evaluate for foreign body and plan for possible surgical excision. (2) Ankle arthritis: Code(s): M19.079 - Primary osteoarthritis, unspecified ankle and foot Category: Medical Qualifiers: Laterality: right Qualified Code(s): M19.071 - Primary osteoarthritis, right ankle and foot Plan: * Discussed possible custom AFO in the future if he requires it * No surgical plan/TTC at this time due to fair ankle range of motion. (3) Callus of foot: Code(s): L84 - Corns and callosities Category: Medical Plan: * Debrided right foot lesion using a #15 blade. * Insert the patient to begin using Urea cream Orders: Orders MR foot RT wo/w con Today S90.851A - Superficial foreign body, right foot, initial encounter Coding Level of Care Code Est Pt Level 3 (80469) Diagnoses Foreign body in right foot, initial encounter S90.851A Encounter type: initial encounter Arthritis of right ankle M19.071 Laterality: right Callus of foot L84 Time Spent (min) 25
[2025-11-10 13:09] VITALS: BMI 23.1
--- OUTSIDE RECORDS SUMMARY | 2025-11-10 16:23 | XMS_ITS | Encounter Summary ---
Author Organization [facility] Address [address] [place] [address] Phone Care Team Providers Care Gas Appliance Adjuster Name Role Phone Fadi Metzger MD Primary Care Provider Gale Grace MD Unavailable [phone] Encounter Details Date Type Department Care Team (Late st Contact Info) Description 04/28/2020 Procedure Pass [facility] [address] [place] [address] Social History Tobacco Use Types Packs/Day Years [...] documented as of this encounter Care Teams Gas Appliance Adjuster Relationship Specialty Start Date End Date Fadi Metzger MD PCP - General Internal Medicine 04/07/19 Gale Grace MD [address] [place] [address] [address] [place] [address] [email or web address] Orthopedic Surgeon Orthopedic Surgery 09/11/19 documented as of this encounter Additional Source Comments The information contained in this document represents components of the legal health record. It is not the complete legal health record.[facility]
--- OUTSIDE RECORDS SUMMARY | 2025-11-10 16:23 | XMS_ITS | Clinical Summary ---
Author Organization [facility] Address [facility] [employer] [address] [address] Phone Care Team Providers Care Wood Fuel Pelletizer Name Role Phone Fadi Metzger MD Primary Care Provider Gale Grace MD Unavailable [phone] Allergies No known active allergies Medications ALPRAZolam (XANAX) 0.5 MG tablet Take 0.5 mg by mouth nightly as needed for sleep. Per [employer] [employer] 30 tabs = 30 day supply; last filled on 12/17/18 Active dextroamphetami ne-amphetamine (ADDERALL) 20 mg Tab tablet Take 20 mg by mouth 2 (two) times a day. Second dose before 5 pm to prevent insomnia; per [place] [employer] 60 tabs = 30 day supply, last filled on 12/22/18 Active zolpidem (AMBIEN) 10 mg tablet Take 5-10 mg by mouth nightly as needed (Verified with pt Pharmacy - [facility]). Active albuterol 90 mcg/actuation inhaler Inhale [...] performing his nursing care. 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 He is out [...] Dial test for knee. Ambulatory referral to [facility] Teleradiologist Casting and Splinting provided. Follow up in [...] this topic Medical Devices Implanted Type Area Lapidarist Device Identifier Shelf Expiration Date Model / Serial / Lot Screw Bone 48x3.5mm Cortex Ss Cannulated Partial Thread Hexagonal Socket Flat Head - [id number] Implanted:Qty: 2 on 12/24/2018 by Gale Grace MD at [facility] Right: Ankle SYNTHES 205.048 / / Screw Bone 40x3.0mm Cannulated Ss Compression Short Thread Headless T8 [employer] Recess - [id number] Implanted:Qty: 2 on 12/24/2018 by Gale Grace MD at [facility] Explanted:Qty: 1 on 01/07/2019 at [facility] Right: Ankle SYNTHES 02.226.040 / / Screw Bone 3.5x30mm Cortex Self Tapping Fully Threaded Hex Head Ss - [id number] Implanted:Qty: 2 on 01/07/2019 by Gale Grace MD at [facility] Right: Ankle SYNTHES 204.830 / / Screw Bone 56x3.5mm Lcp Ss Locking Self Tapping Full Thread [employer] Recess - [id number] Implanted:Qty: 1 on 01/07/2019 by Gale Grace MD at [facility] Right: Ankle SYNTHES 02.212.056 / / Screw Bone 60x3.5mm Compression Ss Locking Self Tapping Full Thread T15 [employer] Recess - [id number] Implanted:Qty: 2 on 01/07/2019 by Gale Grace MD at [facility] Right: Ankle SYNTHES 212.124 / / Screw Bone 3.5x26mm Cortex Self Tapping Fully Threaded Hex Head Ss - [id number] Implanted:Qty: 1 on 01/07/2019 by Gale Grace MD at [facility] Right: Ankle SYNTHES 204.826 / / Screw Bone 3.5x28mm Cortex Self Tapping Fully Threaded Hex Head Ss - [id number] Implanted:Qty: 2 on 01/07/2019 by Gale Grace MD at [facility] Right: Ankle SYNTHES 204.828 / / Right Wrist Tibia Plate [id number] 8 Hole Bone Lcp Ss [place] Medial Distal Right - [id number] Implanted:Qty: 1 on 01/07/2019 by Gale Grace MD at [facility] Right: Ankle SYNTHES 02.112.518 / / Insurance T PPO T PPO AETNA PPO AETNA PPO AETNA PPO AETNA PPO AETNA PPO AETNA PPO AETNA PPO Advance Directives For more information, please contact: [phone] (9AM - 5PM [facility] [place]/[facility], Sunday-Sunday) Documents on File Type Date Recorded Patient Director Of Veterans Affairs Expl anation Healthcare Proxy 12/27/2018 3:40 PM [...] 9:46 PM 12/24/2018 11:46 AM Care Teams Wood Fuel Pelletizer Relationship Specialty Start Date End Date Fadi Metzger MD PCP - General Internal Medicine 04/07/19 Gale Grace MD [address] [place] [address] [address] [place] [address] [email or web address] Orthopedic Surgeon Orthopedic Surgery 09/11/19 Additional Source Comments The information contained in this document represents components of the legal health record. It is not the complete legal health record.[facility]
--- OUTSIDE RECORDS SUMMARY | 2025-11-10 16:23 | XMS_ITS | Encounter Summary ---
Author Organization [facility] Address [address] [place] [address] Phone Care Team Providers Care Snailer Name Role Phone Fadi Metzger MD Primary Care Provider Gale Grace MD Unavailable [phone] Encounter Details Date Type Department Care Team (Late st Contact Info) Description 08/13/2020 Transcribe Orders Virtual Department [address] [place] [address] Caryl Trujillo MD [address] [place] [id number] Encounter for laboratory testing for COVID-19 virus [...] Primary documented in this encounter Care Teams Snailer Relationship Specialty Start Date End Date Fadi Metzger MD PCP - General Internal Medicine 04/07/19 Gale Grace MD [address] [place] [address] [address] [place] [id number] [email or web address] Orthopedic Surgeon Orthopedic Surgery 09/11/19 documented as of this encounter Additional Source Comments The information contained in this document represents components of the legal health record. It is not the complete legal health record.[facility]
--- OUTSIDE RECORDS SUMMARY | 2025-11-10 16:24 | XMS_ITS | Encounter Summary ---
Author Organization [facility] Address [facility]ly [facility] [employer] [address] [address] Phone Care Team Providers Care Blood Bank Worker Name Role Phone StepanReji Primary Care Provider [phone] Faid Metzger MD Primary Care Provider Gale Grace MD Unavailable [phone] Encounter Details Date Type Department Care Team (Late st Contact Info) Description 01/17/2019 Procedure Pass [facility], [address] [address] Social History Tobacco Use Types Packs/Day Years [...] documented as of this encounter Care Teams Blood Bank Worker Relationship Specialty Start Date End Date StepanRejiDO PCP - General 09/10/17 04/06/19 Fadi Metzger MD PCP - General Internal Medicine 04/07/19 Gale Grace MD [address] [place] [address] [address] [place] [address] [email or web address] Orthopedic Surgeon Orthopedic Surgery 09/11/19 documented as of this encounter Additional Source Comments The information contained in this document represents components of the legal health record. It is not the complete legal health record.[facility]
--- OUTSIDE RECORDS SUMMARY | 2025-11-10 16:24 | XMS_ITS | Clinical Summary ---
Author Organization [facility] Prior to 04/25/[address] [place] [address] Care Team Providers Care Outsole Skiver Name Role Phone Fadi Metzger MD Primary Care Provider [phone] Medications Medication Sig Dispensed Refills Start Date [...] age to complete this topic Care Teams Outsole Skiver Relationship Specialty Start Date End Date Fadi Metzger MD [address] [place] [id number] PCP - General Internal Medicine 07/22/20
--- OUTSIDE RECORDS SUMMARY | 2025-11-10 16:24 | XMS_ITS | Patient Health Record ---
Author Organization [facility] Address [address] [place] [id number] Care Team Providers Care Pharmacist Technician Name Role Phone PURNIMA SRIVASTAVA MD [...] type I of right lower limb (disorder) ([id number]) Complex regional pain syndrome I of right lower limb (G90.521) Active confirmed Plan Of Treatment No Information Insurance Providers Payer Name Payer Address Payer Phone Subscriber Number Group Number Insured Name Patient Relationship to Insured Coverage Start Date Coverage End Date [employer] [address] [place], [place] [id number] WILLIAM CHAVEZ Self - patient is the [...]
--- OUTSIDE RECORDS SUMMARY | 2025-11-10 16:24 | XMS_ITS | Encounter Summary ---
Author Organization [facility] Address [address] [place] [address] Phone Care Team Providers Care Picture Enlarger Name Role Phone Reji Ying DO Primary Care Provider [phone] Fadi Metzger MD Primary Care Provider Gale Grace MD Unavailable [phone] Encounter Details Date Type Department Care Team (Late st Contact Info) Description 01/07/2019 Procedure Pass [facility] PERIOPERATIVE DEPT [address] [place] [phone] Social History Tobacco Use Types Packs/Day Years [...] documented as of this encounter Care Teams Picture Enlarger Relationship Specialty Start Date End Date Reji Ying DO PCP - General 09/10/17 04/06/19 Fadi Metzger MD PCP - General Internal Medicine 04/07/19 Gale Grace MD [address] [place] [address] [address] [place] [address] [email or web address] Orthopedic Surgeon Orthopedic Surgery 09/11/19 documented as of this encounter Additional Source Comments The information contained in this document represents components of the legal health record. It is not the complete legal health record.[facility]
--- OUTSIDE RECORDS SUMMARY | 2025-11-10 16:24 | XMS_ITS | Encounter Summary ---
Author Organization [facility] Address [facility] [address] [place] [address] Phone Care Team Providers Care Dormitory Supervisor Name Role Phone Reji Ying DO Primary Care Provider [phone] Fadi Metzger MD Primary Care Provider Gale Grace MD Unavailable [phone] Encounter Details Date Type Department Care Team (Late st Contact Info) Description 02/04/2019 Ancillary Orders Virtual Department [address] [place] [address] Reji Ying DO [address] [address] SOB (shortness of breath) Social History Tobacco [...] documented as of this encounter Care Teams Dormitory Supervisor Relationship Specialty Start Date End Date Reji Ying DO PCP - General 09/10/17 04/06/19 Fadi Metzger MD PCP - General Internal Medicine 04/07/19 Gale Grace MD [address] [place] [address] [address] [place] [address] [email or web address] Orthopedic Surgeon Orthopedic Surgery 09/11/19 documented as of this encounter Additional Source Comments The information contained in this document represents components of the legal health record. It is not the complete legal health record.[facility]
--- OUTSIDE RECORDS SUMMARY | 2025-11-10 16:24 | XMS_ITS | Encounter Summary ---
Author Organization [facility] Address [address] [place] [address] Phone Care Team Providers Care Control Panel Assembler Name Role Phone Reji Ying DO Primary Care Provider Fadi Metzger MD Primary Care Provider Gale Grace MD Unavailable [phone] Encounter Details Date Type Department Care Team (Late st Contact Info) Description 12/24/2018 Procedure Pass [facility] PERIOPERATIVE DEPT [address] [place] [phone] Social History Tobacco Use Types Packs/Day Years [...] documented as of this encounter Care Teams Control Panel Assembler Relationship Specialty Start Date End Date Reji Ying DO PCP - General 09/10/17 04/06/19 Fadi Metzger MD PCP - General Internal Medicine 04/07/19 Gale Grace MD [address] [place] [address] [address] [place] [address] [email or web address] Orthopedic Surgeon Orthopedic Surgery 09/11/19 documented as of this encounter Additional Source Comments The information contained in this document represents components of the legal health record. It is not the complete legal health record.[facility]
== END 2025-11-10 13:23 | disposition home or self-care (01) ==
LOC: HO.HPODS 12:37
PROVIDERS: PCP Internal Medicine Sports Medicine; Visit Provider Student in an Organized Health Care Education/Training Program
DX: S90.851A Superficial foreign body, right foot, initial encounter (principal); M19.071 Primary osteoarthritis, right ankle and foot; L84 Corns and callosities
CPT/HCPCS: 99213